=== PATIENT | female | born 1965 | race Caucasian/White ===

== ENCOUNTER 2018-03-29 10:12 | Emergency (ER) | payer MEDICAID ==
[~2018-03-29] VITALS: Ht 175.3 cm; Wt 118.0 kg
[~2018-03-29 10:12] MED LIST: ATOR40TA PO; EFF25T PO; FURO-150 PO; POTA20TA19 PO
[2018-03-29 10:14] VITALS: BP 132/99
--- NOTE | 2018-03-29 10:47 | NUR ---
NOTIFIED DR PAEZ PT IS IN GOWN AND READY FOR RECTAL EXAM
[2018-03-29] MEDS ORDERED: CYCL-1 PO (11:00)
[2018-03-29] MEDS ORDERED: NAPR-56 PO (11:00)
[2018-03-29] MEDS ORDERED: naproxen 500mg tablet PO ONE (11:25)
[2018-03-29] MEDS ORDERED: cyclobenzaprine 10mg tablet PO ONE (11:25)
[2018-03-29] MEDS ORDERED: BISA-155 PO (11:26)
== END 2018-03-29 11:59 | disposition home or self-care (01) ==
LOC: ER 10:12
DX: M53.3 Sacrococcygeal disorders, not elsewhere classified (principal); E78.00 Pure hypercholesterolemia, unspecified; Z98.890 Other specified postprocedural states; Z79.899 Other long term (current) drug therapy
CPT/HCPCS: 72220; 99283

== ENCOUNTER 2023-09-18 09:24 | Outpatient (CLI) | payer MEDICAID ==
[~2023-09-18 09:24] MED LIST changes: +BISA-155 PO; +CYCL-1 PO; -EFF25T PO; +POTA-207 PO; -POTA20TA19 PO; +VENL25TA48 PO
== END 2023-09-18 23:59 | disposition home or self-care (01) ==
LOC: RAD 09:24
PROVIDERS: ATTEND Student in an Organized Health Care Education/Training Program
DX: Z12.2 Encounter for screening for malignant neoplasm of respiratory organs (principal); F17.210 Nicotine dependence, cigarettes, uncomplicated; I25.10 Atherosclerotic heart disease of native coronary artery without angina pectoris; M47.816 Spondylosis without myelopathy or radiculopathy, lumbar region
CPT/HCPCS: 71271